=== PATIENT | female | born 1995 | race American Indian/Alaskan Native ===

== ENCOUNTER 2017-09-05 15:18 | Emergency (ER) | payer BC, OTHER ==
[2017-09-05 15:39] VITALS: RESP 18; TEMP 97.9
--- NOTE | 2017-09-05 16:12 | ED PDOC ---
Arrival/HPI - General Chief Complaint: Cough, Cold, Congestion Time Seen by Provider: 09/05/17 15:19 Historian: Patient - History of Present Illness Narrative History of Present Illness (Text): 09/05/17 16:09 22-year-old female presents today with cough and nasal congestion 4 days. Patient also states that she is . Patient states she had a positive test on ' Day. Patient states that she's been having some intermittent abdominal cramping. She denies pain at present time. Patient denies vaginal bleeding or vaginal discharge. Denies chest pain or shortness of breath. She is complaining of a dry cough with body aches. Patient states she was seen at an urgent care center yesterday and tested negative for the flu. Patient denies nausea or vomiting. Denies fevers or chills. Denies sick contacts at home. Time/Duration: Other (4 days) Symptom Onset: Gradual Symptom Course: Improving Quality: Aching Past Medical History - Provider Review Nursing Documentation Reviewed: Yes - Travel History Have you recently traveled outside [place] w/in the past 3 mons?: No - Infectious Disease Hx of Infectious Diseases: None - Psychiatric Hx Substance Use: No - Anesthesia Hx Anesthesia: No Family/Social History - Physician Review Nursing Documentation Reviewed: Yes Family/Social History: Unknown Family HX Smoking Status: Never Smoked Hx Alcohol Use: No Hx Substance Use: No Allergies/Home Meds Allergies/Adverse Reactions: Allergies No Known Allergies Allergy (Verified 09/05/17 15:24) Review of Systems - Review of Systems Constitutional: absent: Fatigue, Fevers ENT: Sinus Congestion. absent: Sore Throat Respiratory: Cough. absent: SOB Cardiovascular: absent: Chest Pain, Palpitations Gastrointestinal: Abdominal Pain (intermittent cramping; no pain now.). absent : Constipation, Diarrhea, Nausea, Vomiting Genitourinary Female: absent: Dysuria, Frequency, Hematuria, Vaginal Bleeding, Vaginal Discharge Musculoskeletal: absent: Arthralgias, Back Pain, Neck Pain Skin: absent: Rash, Pruritis Neurological: absent: Headache, Dizziness Psychiatric: absent: Anxiety, Depression, Suicidal Ideation Physical Exam Vital Signs Reviewed: Yes Vital Signs Temp Pulse Resp BP Pulse Ox 09/05/17 20:04 80 18 127/69 100 09/05/17 17:18 89 18 121/71 98 09/05/17 15:24 97.9 F 97 H 18 119/75 96 Temperature: Afebrile Blood Pressure: Normal Pulse: Regular Respiratory Rate: Normal Appearance: Positive for: Well-Appearing, Non-Toxic, Comfortable Pain Distress: None Mental Status: Positive for: Alert and Oriented X 3 - Systems Exam Head: Present: Atraumatic Extroacular Muscles: Present: EOMI Conjunctiva: Present: Normal Ears: Present: Normal, NORMAL TM Mouth: Present: Moist Mucous Membranes Pharnyx: Present: Normal. No: ERYTHEMA, EXUDATE Nose (External): Present: Atraumatic Nose (Internal): Present: Clear Mucous Neck: Present: Normal Range of Motion, Trachea Midline. No: Meningeal Signs, Lymphadenopathy Respiratory/Chest: Present: Clear to Auscultation, Good Air Exchange. No: Respiratory Distress, Accessory Muscle Use Cardiovascular: Present: Regular Rate and Rhythm, Normal S1, S2. No: Murmurs Abdomen: No: Tenderness Genitourinary/Pelvic Exam: Present: Other (PT REFUSED VAGINAL EXAMINATION) Back: Present: Normal Inspection. No: CVA Tenderness, Midline Tenderness, Paraspinal Tenderness Upper Extremity: Present: Normal ROM Lower Extremity: Present: Normal ROM Neurological: Present: GCS=15, Speech Normal Skin: Present: Warm, Dry, Normal Color. No: Rashes Psychiatric: Present: Alert, Oriented x 3 Medical Decision Making ED Course and Treatment: 09/05/17 16:12 Patient is nontoxic well appearing in no distress. pt with URI symptoms x 4 days. with intermittent abd cramping; no pain at present time; vital signs are stable. pt is . pt has not seen patient portal concierge. CBC: wbc; 3.5 CMP: wnl Beta hC TYPE AND SCREEN: O+ Urinalysis: + ketones Ultrasound: FINDINGS: Gestation: Single live intrauterine gestation. heart rate of 171 beats per minute. [place]-rump length of 2.6 cm, correlating with gestational age of 9 weeks 3 days. Uterus/cervix: No subchorionic hemorrhage. No cervical dilatation or effacement. Ovaries: RIGHT ovary: Normal. LEFT ovary: Probable 1.8 x 1.9 x 1.9 cm corpus luteal cyst. No adnexal masses. Free fluid: No significant free fluid. IMPRESSION: 1. Single live intrauterine gestation. 2. Incidental/non-acute findings are described above. EXAM: US , Transvaginal CLINICAL HISTORY: 22 years old, female; Pain; complicated by abdominal or pelvic pain; Lower; First trimester; Gestational age or lmp: 06/21/2017; ; Additional info: , TECHNIQUE: Real-time transvaginal obstetrical ultrasound of the maternal pelvis and a first trimester with image documentation. Transvaginal imaging was used for better evaluation of the fetus and adnexa. COMPARISON: No relevant prior studies available. FINDINGS: Gestation: Single live intrauterine gestation. heart rate of 171 beats per minute. [place]-rump length of 2.6 cm, correlating with gestational age of 9 weeks 3 days. Uterus/cervix: No subchorionic hemorrhage. No cervical dilatation or effacement. Ovaries: RIGHT ovary: Normal. LEFT ovary: Probable 1.8 x 1.9 x 1.9 cm corpus luteal cyst. No adnexal masses. Free fluid: No significant free fluid. IMPRESSION: 1. Single live intrauterine gestation. 2. Incidental/non-acute findings are described above. pt refused pelvic/speculum examination. pt with cough/cold symptoms x 4 days; stable vitals; afebrile; lungs cta bilaterally. pt will treat symptomatically; Discussed all the results the patient. advised f/u with the disability manager within the next 2 days. advised immediate return if symptoms worsen,persist or if new symptoms develop. advised increasing fluids, tylenol every 4 hours as needed for pain; advised vitamins daily. Patient verbalizes understanding of discharge instructions and need for immediate followup. all aspects of this case were discussed the attending of record. Impression: URI, Tylenol every 4 hours as needed for pain/fever Increase fluids Take vitamins daily Followup with the autocad technician within the next 2 days Return immediately if symptoms worsen persist or if new symptoms develop: High fevers, heavy bleeding, severe abdominal pain, vomiting, diarrhea, dizziness or weakness or any other concerning symptoms develop. - Lab Interpretations Lab Results: 09/05/17 16:15 09/05/17 16:15 Lab Results 09/05/17 18:46: Blood Type Confirm O POSITIVE 09/05/17 18:31: Blood Type O POSITIVE, Antibody Screen Negative, BBK History Checked No verified bt 09/05/17 16:15: WBC 3.5 L, RBC 4.45, Hgb 12.1, Hct 37.3, MCV 83.8, MCH 27.2, MCHC 32.4, RDW 14.3, Plt Count 239, MPV 9.7, Gran % 41.7 L, Lymph % (Auto) 30.3 , [place] % (Auto) 20.5 H, Eos % (Auto) 6.6 H, Baso % (Auto) 0.9, Gran # 1.44, Lymph # (Auto) 1.1 L, [place] # (Auto) 0.7 H, Eos # (Auto) 0.2, Baso # (Auto) 0.03 , Neutrophils % (Manual) 44 L, Lymphocytes % (Manual) 41 H, Monocytes % (Manual ) 12 H, Eosinophils % (Manual) 3, Platelet Evaluation Normal 09/05/17 16:15: Beta HCG, Quant 709688.00 H 09/05/17 16:15: Sodium 136, Potassium 3.5 L, Chloride 104, Carbon Dioxide 20 L, Anion Gap 15, BUN 6 L, Creatinine 0.5 L, Est GFR ( Amer) > 60, Est GFR ( Non-Af Amer) > 60, Random Glucose 86, Calcium 9.3, Total Bilirubin 0.3, AST 24, ALT 20, Alkaline Phosphatase 47, Total Protein 7.8, Albumin 4.1, Globulin 3.7, Albumin/Globulin Ratio 1.1 09/05/17 16:15: Urine Color Yellow, Urine Appearance Clear, Urine pH 5.5, Ur Specific [place] >= 1.030, Urine Protein Negative, Urine Glucose (UA) Negative, Urine Ketones 40 H, Urine Blood Negative, Urine Nitrate Negative, Urine Bilirubin Negative, Urine Urobilinogen 0.2, Ur Leukocyte Esterase Negative 09/05/17 16:15: Influenza Typ A,B (EIA) Negative for flu a/b - RAD Interpretation Radiology Orders: 09/05/17 16:08 OB TRANSVAGINAL [US] Stat Disposition/Present on Arrival - Present on Arrival Any Indicators Present on Arrival: No History of DVT/PE: No History of Uncontrolled Diabetes: No Urinary Catheter: No History of Decub. Ulcer: No History Surgical Site Infection Following: None - Disposition Have Diagnosis and Disposition been Completed?: Yes Diagnosis: Upper respiratory infection Disposition: HOME/ ROUTINE Disposition Time: 20:01 Patient Plan: Discharge Condition: GOOD Discharge Instructions (ExitCare): Upper Respiratory Infection (ED) Additional Instructions: Tylenol every 4 hours as needed for pain/fever Increase fluids Take vitamins daily Followup with the autocad technician within the next 2 days Return immediately if symptoms worsen persist or if new symptoms develop: High fevers, heavy bleeding, severe abdominal pain, vomiting, diarrhea, dizziness or weakness or any other concerning symptoms develop. Prescriptions: Multivit/Folic Acid/I [ Plus] 1 tab PO DAILY #30 tab Referrals: [facility] [place] [Outside] - [facility] with [facility] [Outside] - Follow up with primary Mike Turcios MD [Staff Provider] - Follow up with primary Forms: [employer] ([place]), WORK NOTE
[2017-09-05 16:48] LABS: PH,URINE 5.5 (4.7-8.0); URINE BILIRUBIN NEGATIVE (NEGATIVE); URINE BLOOD NEGATIVE (NEGATIVE); URINE GLUCOSE (UA) NEGATIVE (NEGATIVE); URINE LEUKOCYTE ESTERASE NEGATIVE Leu/uL (NEGATIVE); URINE NITRATE NEGATIVE (NEGATIVE); URINE PROTEIN NEGATIVE mg/dL (<30 mg/dL); URINE UROBILINOGEN 0.2 E.U./dL (<1 E.U./dL)
[2017-09-05 16:50] LABS: BASO # 0.03 K/mm3 (0.0-2.0); BASO % 0.9 % (0.0-3.0); EOS # 0.2 (0.0-0.7); EOS % 6.6 % (1.5-5.0); GRAN # 1.44 (1.4-6.5); GRAN % 41.7 % (50.0-68.0); HEMOGLOBIN 12.1 g/dL (12.0-16.0); LYMPH # 1.1 (1.2-3.4); LYMPH % 30.3 % (22.0-35.0); MEAN CELL VOLUME 83.8 fl (80.0-105.0); MEAN CORPUSCULAR HEMOGLOBIN 27.2 pg (25.0-35.0); MEAN CORPUSCULAR HGB CONC 32.4 g/dl (31.0-37.0); MEAN PLATELET VOLUME 9.7 fl (7.0-11.0); MONO # 0.7 (0.1-0.6); MONO % 20.5 % (1.0-6.0); PLATELET COUNT 239 10^3/uL (120.0-450.0); RBC 4.45 10^6/uL (3.5-6.1); RED CELL DISTRIBUTION WIDTH 14.3 % (11.5-14.5); URINE APPEARANCE CLEAR (CLEAR); URINE COLOR YELLOW (YELLOW); WHITE BLOOD COUNT 3.5 10^3/ul (4.5-11.0)
[2017-09-05 16:57] LABS: ALB/GLOB RATIO 1.1 (1.1-1.8); ALBUMIN 4.1 g/dL (3.0-4.8); ALT/SGPT 20 U/L (7-56); AST/SGOT 24 U/L (14-36); BLOOD UREA NITROGEN 6 mg/dL (7-21); CALCIUM 9.3 mg/dL (8.4-10.5); GFR AFRICAN-AMERICAN > 60; GFR NON-AFRICAN AMERICAN > 60
[2017-09-05 17:20] LABS: EOSINOPHIL 3 % (0.0-3.0); LYMPHOCYTE 41 % (22.0-35.0); MONOCYTE 12 % (1.0-6.0); NEUTROPHIL 44 % (50.0-70.0)
[2017-09-05 17:21] LABS: PLATELET ESTIMATE NORMAL (NORMAL)
--- NOTE | 2017-09-05 19:20 | US ---
EXAM: US First Trimester, Transabdominal CLINICAL HISTORY: 22 years old, female; Pain; complicated by abdominal or pelvic pain; Lower; First trimester; Gestational age or lmp: 06/21/2017; ; Additional info: , TECHNIQUE: Real-time transabdominal obstetrical ultrasound of the maternal pelvis and a first trimester with image documentation. COMPARISON: No relevant prior studies available. FINDINGS: Gestation: Single live intrauterine gestation. heart rate of 171 beats per minute. [place]-rump length of 2.6 cm, correlating with gestational age of 9 weeks 3 days. Uterus/cervix: No subchorionic hemorrhage. No cervical dilatation or effacement. Ovaries: RIGHT ovary: Normal. LEFT ovary: Probable 1.8 x 1.9 x 1.9 cm corpus luteal cyst. No adnexal masses. Free fluid: No significant free fluid. IMPRESSION: 1. Single live intrauterine gestation. 2. Incidental/non-acute findings are described above. EXAM: US , Transvaginal CLINICAL HISTORY: 22 years old, female; Pain; complicated by abdominal or pelvic pain; Lower; First trimester; Gestational age or lmp: 06/21/2017; ; Additional info: , TECHNIQUE: Real-time transvaginal obstetrical ultrasound of the maternal pelvis and a first trimester with image documentation. Transvaginal imaging was used for better evaluation of the fetus and adnexa. COMPARISON: No relevant prior studies available. FINDINGS: Gestation: Single live intrauterine gestation. heart rate of 171 beats per minute. [place]-rump length of 2.6 cm, correlating with gestational age of 9 weeks 3 days. Uterus/cervix: No subchorionic hemorrhage. No cervical dilatation or effacement. Ovaries: RIGHT ovary: Normal. LEFT ovary: Probable 1.8 x 1.9 x 1.9 cm corpus luteal cyst. No adnexal masses. Free fluid: No significant free fluid.
[2017-09-05 20:05] VITALS: BP 127/69; PULSE 80; O2SAT 100
== END 2017-09-05 20:16 | disposition home or self-care (01) ==
LOC: ED 15:18
DX: J06.9 Acute upper respiratory infection, unspecified (principal); O26.891 Other specified pregnancy related conditions, first trimester; Z3A.09 9 weeks gestation of pregnancy